=== PATIENT | male | born 1975 | race Caucasian/White ===

== ENCOUNTER 2020-02-29 09:10 | Emergency (ER) | payer BC ==
[2020-02-29] MEDS ORDERED: Bacitracin Oint 1 GM U/D Packet TOP ONE (09:59)
--- NOTE | 2020-02-29 10:04 | EDM.PDOC ---
ED HPI GENERAL MEDICAL PROBLEM - General Chief Complaint: Laceration Stated Complaint: L FOOT INJURY Time Seen by Provider: 02/29/20 09:50 Source of Information: Reports: Patient, RN History Limitations: Reports: Other (No old records, from out of town) - History of Present Illness INITIAL COMMENTS - FREE TEXT/NARRATIVE: 45 yo male hit the dorsum of his L foot with an ax yesterday about 8 pm. He cut through his shoe and into the dorsum of that foot. Has had bleeding on and off since. Is not sure about tetanus status. Onset: Sudden Onset Date: 02/28/20 Onset Time: 20:00 Duration: Hour(s): (14), Constant Location: Reports: Lower Extremity, Left Quality: Reports: Ache Severity: Moderate Improves with: Reports: Rest Worsens with: Reports: Movement Context: Reports: Trauma Associated Symptoms: Reports: No Other Symptoms Treatments DIGITAL COORDINATOR: Reports: Other (see below) (no analgesia) Left Feet Pain Score (Numeric/FACES): 5 - Related Data Allergies Allergy/AdvReac Type Severity Reaction Status Date / Time aspirin Allergy Other Verified 02/29/20 09:28 Home Meds: Home Meds Apixaban [Eliquis] 5 mg PO BID 02/29/20 [History] Diltiazem HCl [Diltiazem 24Hr Cd] 180 mg PO DAILY 02/29/20 [History] Dulaglutide [Trulicity] 1.5 mg SQ ASDIRECTED 02/29/20 [History] FLUoxetine [PROzac] 10 mg PO DAILY 02/29/20 [History] Olmesartan/Hydrochlorothiazide [Benicar HCT 40-25 MG] 1 tab PO DAILY 02/29/20 [ History] Pravastatin [Pravachol] 40 mg PO DAILY 02/29/20 [History] metFORMIN HCl [Metformin ER Gastric] 2,000 mg PO DAILY 02/29/20 [History] Past Medical History Cardiovascular History: Reports: Afib, High Cholesterol Other Cardiovascular History: cardioversion x3 Musculoskeletal History: Reports: Fracture Endocrine/Metabolic History: Reports: Diabetes, Type II, Obesity/BMI 30+ - Past Surgical History Cardiovascular Surgical History: Reports: Cardiac Ablation Other Cardiovascular Surgeries/Procedures: x3 Musculoskeletal Surgical History: Reports: Arthroscopic Knee Other Musculoskeletal Surgeries/Procedures:: metal in 5th finger Social & Family History - Tobacco Use Smoking Status *Q: Former Smoker Used Tobacco, but Quit: Yes Month/Year Tobacco Last Used: 11 years ago - Caffeine Use Caffeine Use: Reports: None - Recreational Drug Use Recreational Drug Use: No Review of Systems - Review of Systems Review Of Systems: See Below Constitutional: Reports: No Symptoms Musculoskeletal: Reports: Foot Pain (L foot pain dorsally) Skin: Reports: Wound (1.8 cm linear laceration to the dorsum of the L foot. Not bleeding currently.). Denies: Erythema Neurological: Reports: No Symptoms ED EXAM, GENERAL - Physical Exam Exam: See Below Exam Limited By: No Limitations General Appearance: Alert, WD/WN, No Apparent Distress, Obese Extremities: Normal Range of Motion, No Pedal Edema, Other (laceration to the dorsum of the L foot without ecchymosis or swelling. ). No: Non-Tender, Pedal Edema, Increased Warmth, Mottled, Redness Neurological: Alert, Oriented, CN II-XII Intact, Normal Cognition, No Motor/ Sensory Deficits Psychiatric: Normal Affect, Normal Mood Skin Exam: Warm, Dry, Normal Color, No Rash, Wound/Incision (1.8 cm linear laceration to the dorsum of the L foot.) Course - Vital Signs Last Recorded V/S: Last Vital Signs Temp 35.6 C L 02/29/20 09:22 Pulse 66 02/29/20 09:22 Resp 15 02/29/20 09:22 BP 138/68 02/29/20 09:22 Pulse Ox 97 02/29/20 09:22 - Orders/Labs/Meds Orders: Active Orders 24 hr Category Date Time Status Vaccines to be Administered [RC] PER UNIT ROUTINE Care 02/29/20 10:25 Active Foot Comp Min 3V Lt [CR] Stat Exams 02/29/20 09:58 Taken Meds: Medications Discontinued Medications Generic Name Dose Route Start Last Admin Trade Name Freq PRN Reason Stop Dose Admin Bacitracin 1 dose 02/29/20 09:59 Bacitracin Oint 1 Gm TOP 02/29/20 10:00 ONETIME ONE Diphtheria/Tetanus/Acell Pertussis 0.5 ml 02/29/20 10:24 Adacel IM 02/29/20 10:25 .ONCE ONE - Radiology Interpretation Free Text/Narrative:: L foot X-ray-neg Departure - Departure Time of Disposition: 10:45 Disposition: Home, Self-Care 01 Condition: Good Clinical Impression: Laceration of left foot Qualifiers: Encounter type: initial encounter Qualified Code(s): S91.312A - Laceration without foreign body, left foot, initial encounter - Discharge Information *PRESCRIPTION DRUG MONITORING PROGRAM REVIEWED*: No *COPY OF PRESCRIPTION DRUG MONITORING REPORT IN PATIENT SHIRLENE: No Instructions: Laceration Care, Adult, [id number] Referrals: PCP,None [Primary Care Provider] - Forms: ED Department Discharge Additional Instructions: Acetaminophen as needed for pain relief. Keep the injured foot elevated above your heart as much as possible today. Keep wound clean for 3 days. Clean wound with soap and water twice daily until healed. After washing dry and apply Bacitracin ointment and a new dressing. Keep ANNELIESE wrap on for a few days to reduce bleeding. Recheck for signs of infection. Sepsis Event Note - Evaluation Sepsis Screening Result: No Definite Risk - Focused Exam Vital Signs: Vital Signs Temp Pulse Resp BP Pulse Ox 02/29/20 09:22 35.6 C L 66 15 138/68 97 Date Exam was Performed: 02/29/20 Time Exam was Performed: 10:27 - My Orders Last 24 Hours: My Active Orders 02/29/20 09:58 Foot Comp Min 3V Lt [CR] Stat 02/29/20 10:25 Vaccines to be Administered [RC] PER UNIT ROUTINE - Assessment/Plan Last 24 Hours: My Active Orders 02/29/20 09:58 Foot Comp Min 3V Lt [CR] Stat 02/29/20 10:25 Vaccines to be Administered [RC] PER UNIT ROUTINE
[2020-02-29] MEDS ORDERED: Diphtheria,Pertussis(Acell),Tetanus Vaccine 0.5 ML SDV IM ONE (10:24)
--- NOTE | 2020-03-02 11:43 | CR ---
Foot Comp Min 3V Lt CLINICAL HISTORY: Injury FINDINGS: There is soft tissue swelling over the dorsum of the tarsal region. Patient has a calcaneal spur. There is no acute fracture or dislocation within the foot. No destructive changes are present. IMPRESSION: Dorsal soft tissue tissue swelling No acute bony process.
== END 2020-02-29 10:54 | disposition home or self-care (01) ==
LOC: JP.ED 09:10
DX: S91.312A Laceration without foreign body, left foot, initial encounter (principal); Z79.899 Other long term (current) drug therapy; Z79.84 Long term (current) use of oral hypoglycemic drugs; E78.00 Pure hypercholesterolemia, unspecified; E11.9 Type 2 diabetes mellitus without complications; Z87.891 Personal history of nicotine dependence; E66.9 Obesity, unspecified; Z23 Encounter for immunization; Z88.6 Allergy status to analgesic agent; W45.8XXA Other foreign body or object entering through skin, initial encounter
CPT/HCPCS: 73630-26-LT; 73630-LT; 90471; 90715; 99283-25